=== PATIENT | male | born 1995 | race Caucasian/White ===

== ENCOUNTER 2017-04-05 21:08 | Inpatient (IN) | payer MEDICAID, OTHER ==
[~2017-04-05] VITALS: Ht 170.2 cm; Wt 57.3 kg
[2017-04-05] MEDS ORDERED: LACTATED RINGER'S 1,000 ML IV STA (21:20)
[2017-04-05] MEDS ORDERED: SOD CHLORIDE 0.9% 2,000 ML IV STA (21:20)
[2017-04-05] MEDS ORDERED: morphine 4 MG/ML VIAL IV STA (21:35)
[2017-04-05] MEDS ORDERED: ONDANSETRON 4 MG INJ IV STA (21:35)
[2017-04-05 22:10] LABS: CALCIUM 10.1 mg/dl (8.4-10.2); CREATININE 1.02 mg/dl (0.61-1.24); POTASSIUM 4.4 mmol/L (3.5-5.1)
[2017-04-05 22:11] LABS: BASOPHILS % 0.2 % (0.0-2.0); EOSINOPHILS % 0.4 % (0.0-7.0); HEMATOCRIT 51.6 % (42.0-52.0); HEMOGLOBIN 18.2 g/dl (14.0-18.0); LYMPHOCYTES # 1.8 10^3/ul (0.8-2.9); LYMPHOCYTES % 32.2 % (15.0-51.0); MEAN CORPUSCULAR HEMOGLOBIN 29.2 pg (29.0-33.0); MEAN CORPUSCULAR HGB CONC 35.3 g/dl (32.0-37.0); MEAN CORPUSCULAR VOLUME 82.8 fl (82.0-101.0); MEAN PLATELET VOLUME 8.6 fl (7.4-10.4); MONOCYTE # 0.3 10^3/ul (0.3-0.9); MONOCYTES % 5.2 % (0.0-11.0); NEUTROPHIL # 3.5 10^3/ul (1.6-7.5); NEUTROPHILS % 61.6 % (39.0-77.0); PLATELET COUNT 463 10^3/UL (140-415); RED BLOOD COUNT 6.23 10^6/ul (4.70-6.10); RED CELL DISTRIBUTION WIDTH 13.1 % (11.5-14.5); WHITE BLOOD COUNT 5.6 10^3/ul (4.8-10.8)
[2017-04-05 22:20] LABS: ACETAMINOPHEN < 10.0 ug/ml (10.0-30.0); ETHANOL < 10.0 mg/dl; SALICYLATE < 1.0 mg/dl (5.0-30.0)
[2017-04-05] MEDS ORDERED: INSULIN HUMAN REGULAR 100 UNIT in SOD CHLORIDE 0.9% 99 ML IV SCH ×2 (22:23→23:00)
[2017-04-05] MEDS ORDERED: MULT1TAB59 PO (22:28)
[2017-04-05] MEDS ORDERED: MULTI PO (22:28)
[2017-04-05] MEDS ORDERED: LANT3I SC (22:28)
[2017-04-05] MEDS ORDERED: INSU100I12 SQ (22:28)
--- NOTE | 2017-04-05 22:42 | RADRPT ---
PROCEDURE: CT Brain without. CLINICAL INDICATION: Medical clearance. TECHNIQUE: A CT of the brain was performed on multidetector high-resolution CT scanner utilizing a xial sections from the skull base through the vertex without contrast. The scan was reviewed in sof t tissue brain and high frequency resolution bone algorithm windows. Images were reviewed on a high -resolution PACS workstation. One or more the following does reduction techniques were utilized: Aut omated exposure control, adjustment of the mA/ or kV according to patient's size, or use of iterativ e reconstruction technique. The exam CTDI = 45.01 mGy and the DLP = 720.23 mGy-cm. COMPARISON: None available. FINDINGS: The ventricles and sulci are age-appropriate. There is no intracranial hemorrhage, mass effect or mi dline shift. There is prominent retrocerebellar CSF space measuring up to 1.9 cm in AP diameter whic h may represent bethel cisterna magna versus arachnoid cyst. Otherwise no abnormal intra-axial or extr a-axial fluid collections are seen. The lee/white matter differentiation is preserved. No acute sku ll abnormality is noted. The visualized paranasal sinuses are essentially clear. IMPRESSION: 1. No acute intracranial hemorrhage, transcortical infarction or mass effect. 2. Prominent retrocerebellar CSF space which may represent bethel cisterna magna versus arachnoid cys t. RPTAT: HFN .Reba Otto MD, MD Date Time Electronically viewed and signed by .Reba Otto MD, MD on 04/05/2017 22:42 .N/
[2017-04-05 22:53] LABS: ADD UMIC YES; UR ASCORBIC ACID NEGATIVE (NEGATIVE); UR BACTERIA FEW /HPF (NONE SEEN); UR BILIRUBIN (Dip) NEGATIVE (NEGATIVE); UR BLOOD (Dip) 1+ mg/dL (NEGATIVE); UR CLARITY CLEAR (CLEAR); UR COLOR YELLOW (YELLOW); UR GLUCOSE (Dip) 1+ mg/dL (NEGATIVE); UR KETONES (Dip) 2+ mg/dL (NEGATIVE); UR LEUKOCYTE ESTERASE (Dip) NEGATIVE Leu/ul (NEGATIVE); UR MUCUS FEW /HPF (NONE SEEN); UR NITRITE (Dip) NEGATIVE (NEGATIVE); UR RBC 2 /HPF (0-5); UR SPECIFIC GRAVITY (Dip) 1.013 (1.003-1.030); UR TOTAL PROTEIN (Dip) 2+ mg/dl (NEGATIVE); UR UROBILINOGEN (Dip) 1+ mg/dL (NEGATIVE)
[2017-04-05] MEDS ORDERED: SOD CHLORIDE 0.9% 1,000 ML IV SCH (22:58)
[2017-04-05] MEDS ORDERED: DEXTROSE 5%-0.45% NACL 1,000 ML IV SCH (22:58)
[2017-04-05] MEDS ORDERED: LORAZEPAM 2 MG INJ IV PRN (23:00)
[2017-04-05] MEDS ORDERED: ACETAMINOPHEN 650 MG SUPP PR PRN (23:00)
[2017-04-05] MEDS ORDERED: MAGNESIUM HYDROXIDE 30ML CUP PO PRN (23:00)
[2017-04-05] MEDS ORDERED: ONDANSETRON 4 MG INJ IV PRN (23:00)
[2017-04-05] MEDS ORDERED: ALBUTEROL/IPRATROPIUM (NEB) 3 ML AMP NEB PRN (23:00)
[2017-04-05] MEDS ORDERED: ACCU-CHEK XX SCH (23:00)
[2017-04-05] MEDS ORDERED: DEXTROSE 50% 50 ML SYRINGE IV PRN ×2 (23:00)
[2017-04-05 23:16] LABS: BARBITURATES Negative (NEGATIVE); BENZODIAZEPINES Negative (NEGATIVE); CANNABINOIDS Negative (NEGATIVE); COCAINE Negative (NEGATIVE); OPIATES Positive (NEGATIVE)
[2017-04-05 23:28] LABS: CALCIUM 8.1 mg/dl (8.4-10.2); CREATININE 0.89 mg/dl (0.61-1.24); POTASSIUM 3.8 mmol/L (3.5-5.1)
--- NOTE | 2017-04-05 23:43 | ERD ---
ER Documentation Chief Complaint Chief Complaint DM type1; high BS, nausea and vomiting headache x 3 days HPI Patient is a 22-year-old male with diabetes who presents with blurry vision. Please note the history and physical exam is limited secondary to the patient's mental status at this time. The patient started on Monday with "blurry vision" . He had vomiting and headache as well. He has had decreased intake by mouth. He passed out today which is why the family brought him to the emergency department. He has no weakness of his arms or legs. He has had no treatment as of yet. He initially told me that he took his insulin today but then he also told me that he ran out of insulin 3 days ago. Upon review of old medical records this is the patient's first visit to the emergency department. He goes [facility] for his primary care. ROS All systems reviewed and are negative except as per history of present illness. Medications Home Meds Reported Medications Insulin Lispro (Humalog Kwikpen U-100) 100 Unit/1 Ml Insuln.pen, 0 SQ 8UNITS AT BEAKFAST 10UNITS AT LUNCH 6UNITS AT DINNER 04/05/17 Insulin Glargine* (Lantus*) 100 Unit/Ml Soln, 25 UNIT SC QHS, #1 VIAL 04/05/17 Multivitamins* (Theragran*) 1 Tab Tab, 1 TAB PO DAILY, TAB 04/05/17 Discontinued Reported Medications Multivitamins* (Multivitamins*) 1 Each Tablet, 1 TAB PO DAILY, TAB 04/05/17 Allergies Allergies: Coded Allergies: Unknown: Unable to obtain (Unverified , 04/05/17) PMhx/Soc Positive for diabetes FmHx Family History: diabetes Physical Exam Vitals Vital Signs Date Time Temp Pulse Resp B/P Pulse Ox O2 Delivery O2 Flow Rate FiO2 04/05/17 23:27 111 20 144/92 100 Room Air 04/05/17 22:10 100 14 130/99 100 Room Air 04/05/17 21:13 98.3 147 20 119/75 99 Physical Exam Const: Moderate distress Head: Atraumatic Eyes: Normal Conjunctiva ENT: Normal External Ears, Nose and Mouth. Neck: Full range of motion..~ No meningismus. Resp: Clear to auscultation bilaterally Cardio: Tachycardic rate Abd: Soft, non tender, non distended. Normal bowel sounds Skin: No petechiae or rashes Back: No midline or flank tenderness Ext: No cyanosis, or edema Neur: Awake but confused Result Diagram: 04/05/17212704/05/172252 Results 24 hrs Laboratory Tests Test 04/05/17 21:25 04/05/17 21:28 04/05/17 22:26 04/05/17 22:43 Bedside Glucose 177mg/dL 104mg/dL White Blood Count 5.610^3/ul Red Blood Count 6.2310^6/ul Hemoglobin 18.2g/dl Hematocrit 51.6% Mean Corpuscular Volume 82.8fl Mean Corpuscular Hemoglobin 29.2pg Mean Corpuscular Hemoglobin Concent 35.3g/dl Red Cell Distribution Width 13.1% Platelet Count 92296^3/UL Mean Platelet Volume 8.6fl Neutrophils % 61.6% Lymphocytes % 32.2% Monocytes % 5.2% Eosinophils % 0.4% Basophils % 0.2% Nucleated Red Blood Cells % 0.0/100WBC Neutrophils # 3.510^3/ul Lymphocytes # 1.810^3/ul Monocytes # 0.310^3/ul Eosinophils # 0.010^3/ul Basophils # 0.010^3/ul Nucleated Red Blood Cells # 0.010^3/ul Sodium Level 132mmol/L Potassium Level 4.4mmol/L Chloride Level 94mmol/L Carbon Dioxide Level 15mmol/L Anion Gap 27 Blood Urea Nitrogen 25mg/dl Creatinine 1.02mg/dl Glucose Level 201mg/dl Lactic Acid Level 2.2mmol/L Calcium Level 10.1mg/dl Salicylates Level < 1.0mg/dl Acetaminophen Level < 10.0ug/ml Ethyl Alcohol Level < 10.0mg/dl Urine Color YELLOW Urine Clarity CLEAR Urine pH 6.0 Urine Specific [place] 1.013 Urine Ketones 2+mg/dL Urine Nitrite NEGATIVEmg/dL Urine Bilirubin NEGATIVEmg/dL Urine Urobilinogen 1+mg/dL Urine Leukocyte Esterase NEGATIVELeu/ul Urine Microscopic RBC 2/HPF Urine Microscopic WBC 3/HPF Urine Bacteria FEW/HPF Urine Mucus FEW/HPF Urine Hemoglobin 1+mg/dL Urine Glucose 1+mg/dL Urine Total Protein 2+mg/dl Urine Opiates Screen Positive Urine Barbiturates Negative Urine Amphetamines Screen Negative Urine Benzodiazepines Screen Negative Urine Cocaine Screen Negative Urine Cannabinoids Negative Test 04/05/17 22:53 Sodium Level 135mmol/L Potassium Level 3.8mmol/L Chloride Level 105mmol/L Carbon Dioxide Level 19mmol/L Anion Gap 15 Blood Urea Nitrogen 24mg/dl Creatinine 0.89mg/dl Glucose Level 79mg/dl Calcium Level 8.1mg/dl Phosphorus Level 2.4mg/dl Current Medications Medications (Trade) Dose Ordered Sig/Belle Route PRN Reason Start Time Stop Time Status Last Admin Dose Admin Sodium Chloride 2,000 ml @ 1,000 mls/hr Q2H STAT IV 04/05/17 21:20 04/05/17 23:19 DC 04/05/17 21:35 Lactated Ringer's (Lr) 1,000 ml @ 1,000 mls/hr Q1H STAT IV 04/05/17 21:20 04/05/17 22:19 DC 04/05/17 23:00 Morphine Sulfate (morphine) 4 mg ONCE STAT IV 04/05/17 21:35 04/05/17 21:36 DC 04/05/17 21:44 Ondansetron HCl 4 mg 4 mg ONCE STAT IV 04/05/17 21:35 04/05/17 21:36 DC 04/05/17 21:44 Insulin Human Regular 100 unit/ Sodium Chloride 100 ml @ 6 mls/hr TITRATE IV 04/05/17 22:23 04/05/17 23:39 DC Dextrose/Sodium Chloride (D5-1/2ns) 1,000 ml @ 125 mls/hr Q8H IV 04/05/17 22:58 Ondansetron HCl (Zofran Inj) 4 mg Q6H PRN IV NAUSEA AND/OR VOMITING 04/05/17 23:00 Albuterol/ Ipratropium (Duoneb) 3 ml Q2H RESP THERAPY PRN NEB SHORTNESS OF BREATH 04/05/17 23:00 Acetaminophen (Tylenol Supp) 650 mg Q4H PRN [place] PAIN LEVEL 1-3 OR FEVER 04/05/17 23:00 Morphine Sulfate (morphine) 2 mg Q4H PRN IV PAIN LEVEL 7-10 04/05/17 23:00 Lorazepam (Ativan) 1 mg Q2H PRN IV ANXIETY 04/05/17 23:00 Magnesium Hydroxide (Milk Of Mag) 30 ml DAILY PRN PO CONSTIPATION 04/05/17 23:00 Famotidine (Pepcid Iv) 20 mg Q12 IV 04/06/17 09:00 Dextrose (D50w Syringe) 50 ml Q15M PRN IV For BS 50 or less 04/05/17 23:00 Dextrose 25 ml 25 ml Q15M PRN IV BS between 50-70 04/05/17 23:00 Sodium Chloride 1,000 ml @ 1,000 mls/hr Q1H IV 04/05/17 22:58 04/05/17 23:57 Lactated Ringer's 1,000 ml @ 1,000 mls/hr Q1H IV 04/05/17 23:58 04/06/17 00:57 Potassium Chloride 20 meq/ Sodium Chloride 1,010 ml @ 500 mls/hr Q2H2M IV 04/06/17 00:58 04/06/17 02:57 Insulin Human Regular/Sodium Chloride (Novolin-R/NS) 100 ml @ 6.57 mls/hr DKA PROTOCOL IV 04/05/17 23:00 04/05/17 23:39 DC Diagnostic Test (Pha) (Accu-Chek) 1 ea Q1H XX 04/05/17 23:00 Miscellaneous Information (* Miscellaneous Pharmacy Order) HYPOGLYCEMIA TREATMENT HYPOGLYCEM PROTOCOL PRN XX Hypoglycemia (BS < 70) 04/05/17 23:00 Procedures/MDM CT brain negative for mass or hemorrhage per radiology. Patient is a 22-year-old male presents with tachycardia and altered mental status. My concern initially was for diabetic ketoacidosis as he was not taking his insulin regularly. His initial BMP showed a slightly elevated sugar of 200 and his bicarb was 15 with an elevated anion gap and positive ketones so I will start treating for diabetic ketoacidosis with 2 L of normal saline 1 L of lactated Ringer's. I initially ordered an insulin drip and wanted to admit the patient to the intensive care unit however repeat Accu-Chek was 100 after fluids and I did not want to start the insulin to drop his sugar any further without repeating a BMP. Repeat BMP showed that the anion gap is closed and his bicarbonate improved from 15 to 19 and therefore I do not believe the patient requires ICU level of care at this time. He will be downgraded to a medical surgical bed. He feels better after fluids and I believe he was suffering from dehydration as well. His initial lactic acid was 2.2 but at this point I see no signs of infection and I doubt sepsis. Critical Care: Time: 35 minutes excluding all billable procedures. Treatments/Evaluations: Close monitoring and treatment of unstable vital signs, cardiorespiratory, and neurologic status, while maintaining tight balance of fluid, respiratory, and cardiac interventions. Departure Diagnosis: Primary Impression: Dehydration Additional Impressions: DKA (diabetic ketoacidoses) Diabetes mellitus type: type 1 Diabetes mellitus complication detail: without coma Qualified Code: E10.10 - Diabetic ketoacidosis without coma associated with type 1 diabetes mellitus Hyperglycemia Condition: ELLIOTT Kyle MD Apr 05, 2017 23:43
[2017-04-05] MEDS ORDERED: LACTATED RINGER'S 1,000 ML IV SCH (23:58)
[2017-04-06 00:17] VITALS: TEMP 98.9
[2017-04-06] MEDS ORDERED: POTASSIUM CHLORIDE 20 MEQ in SOD CHLORIDE 0.9% 1,000 ML IV SCH (00:58)
[2017-04-06] MEDS ORDERED: ACCU-CHEK XX SCH (01:00)
[2017-04-06 01:09] VITALS: PULSE 100
[2017-04-06 01:40] VITALS: BP 128/81; RESP 20
[2017-04-06] MEDS ORDERED: GLUCOSE GEL 15 GRAM TUBE BUCCAL PRN (02:15)
[2017-04-06] MEDS ORDERED: GLUCOSE GEL 15 GRAM TUBE PO PRN ×2 (02:15)
[2017-04-06] MEDS ORDERED: GLUCAGON 1 MG INJ IM PRN (02:15)
[2017-04-06] MEDS ORDERED: DEXTROSE 50% 50 ML SYRINGE IV PRN ×2 (02:15)
[2017-04-06] MEDS: SOD CHLORIDE 0.9% 1,000 ML IV SCH ×3 (02:48→22:44)
[2017-04-06 03:06] VITALS: Ht 170.2 cm; Wt 57.3 kg
--- NOTE | 2017-04-06 06:08 | HP ---
Date/Time of Note Date/Time of Note DATE: 04/06/17 TIME: 06:00 Assessment/Plan VTE Prophylaxis VTE Prophylaxis Intervention: SCD's Lines/Catheters IV Catheter Type (from Nrs): Peripheral IV Assessment/Plan Assessment/Plan ASSESSMENT 22-year-old male with a history of insulin-dependent diabetes presenting with early developing DKA after he ran out of his insulin 1 day PLAN Patient received IV fluid boluses in the ER and was out insulin, gap was closed , acidosis improved and he actually became hypoglycemic with a blood glucose of 69. Plan is to treat with subcutaneous insulin. Will check A1c. Continue IV fluids. HPI/ROS Admit Date/Time Admit Date/Time Apr 05, 2017 at 22:42 Hx of Present Illness This is a 22-year-old male with a history of insulin-dependent diabetes who presented to ER complaining of headache, generalized weakness, nausea and elevated blood sugar. He said that he ran out of his insulin yesterday. Denied chest pain, shortness of breath, fever/chills. When he presented to the ER he was tachycardic with a heart rate of almost 150. Initial POC glucose was around 180 with BMP showing around 200. He had bicarb of 15, anion gap 27 with a urinalysis showing 2+ ketones. He received IV fluid boluses with repeat BMP showing an anion gap of 15, bicarb 19 and blood glucose of 69. Initial plan to admit to ICU was canceled and now admitted to MedSurg units and is on subcutaneous insulin. PMH/Family/Social Social History Smoking Status: Never smoker Exam/Review of Systems Vital Signs Vitals Vital Signs Date Time Temp Pulse Resp B/P Pulse Ox O2 Delivery O2 Flow Rate FiO2 04/06/17 01:40 98.4 93 20 128/81 100 04/06/17 01:09 Room Air Intake and Output 04/05/17 04/05/17 04/06/17 15:00 23:00 07:00 Intake Total 2000 ml 1000 ml Balance 2000 ml 1000 ml Exam Constitutional: alert, oriented, well developed Head: atraumatic, normocephalic Eyes: EOMI, PERRL Respiratory: clear to auscultation, normal air movement Cardiovascular: nl pulses, regular rate and rhythm Gastrointestinal: non-tender, soft Extremities: normal pulses Labs Result Diagram: 04/05/17212704/05/172252 Medications Medications Current Medications Ondansetron HCl (Zofran Inj) 4 mg Q6H PRN IV NAUSEA AND/OR VOMITING; Start 04/05/17 at 23:00 Acetaminophen (Tylenol Supp) 650 mg Q4H PRN [place] PAIN LEVEL 1-3 OR FEVER; Start 04/05/17 at 23:00 Morphine Sulfate (morphine) 2 mg Q4H PRN IV PAIN LEVEL 7-10; Start 04/05/17 at 23:00 Lorazepam (Ativan) 1 mg Q2H PRN IV ANXIETY; Start 04/05/17 at 23:00 Magnesium Hydroxide (Milk Of Mag) 30 ml DAILY PRN PO CONSTIPATION; Start at 23:00 Famotidine 20 mg 20 mg Q12 IV ; Start 04/06/17 at 09:00 Sodium Chloride (NS) 1,000 ml @ 100 mls/hr Q10H IV Last administered on t 02:48; Admin Dose 100 MLS/HR; Start 04/06/17 at 02:30 Diagnostic Test (Pha) (Accu-Chek) 1 ea Q6 XX ; Start 04/06/17 at 06:00 Miscellaneous Information 1 ea NOTE XX ; Start 04/06/17 at 02:15 Glucose (Glutose) 15 gm Q15M PRN PO DECREASED GLUCOSE; Start 04/06/17 at 02:15 Glucose (Glutose) 22.5 gm Q15M PRN PO DECREASED GLUCOSE; Start 04/06/17 at 02: 15 Dextrose (D50w Syringe) 25 ml Q15M PRN IV DECREASED GLUCOSE; Start 04/06/17 at 02:15 Dextrose (D50w Syringe) 50 ml Q15M PRN IV DECREASED GLUCOSE; Start 04/06/17 at 02:15 Glucagon (Glucagen) 1 mg Q15M PRN IM DECREASED GLUCOSE; Start 04/06/17 at 02:15 Glucose (Glutose) 15 gm Q15M PRN BUCCAL DECREASED GLUCOSE; Start 04/06/17 at 02 :15 Influenza Virus Vaccine (Fluzone) 0.5 ml ONCE ONCE IM* ; Start 04/07/17 at 09: 00; Stop 04/07/17 at 09:01 MIRA MEDINA MD Apr 06, 2017 06:08
[2017-04-06] MEDS: ACCU-CHEK XX SCH ×4 (06:36→23:59)
[2017-04-06 08:30] VITALS: BP 111/57; RESP 20
[2017-04-06] MEDS: FAMOTIDINE 20 MG INJ IV SCH ×2 (08:42→20:35)
[2017-04-06] MEDS: INSULIN ASPART [NOVOLOG] 3 ML PEN SC SCH ×6 (08:57→20:44)
[2017-04-06] MEDS ORDERED: INSULIN GLARGINE [LANtus] 3 ML PEN SC SCH (10:00)
--- NOTE | 2017-04-06 10:00 | PN ---
Date/Time of Note Date/Time of Note DATE: 04/06/17 TIME: 10:00 Assessment/Plan VTE Prophylaxis VTE Prophylaxis Intervention: ambulation Lines/Catheters IV Catheter Type (from Nrsg): Peripheral IV Assessment/Plan Chief Complaint/Hosp Course 22-year-old male with a history of type I diabetes presenting with nausea and vomiting headache x 3 days who also ran out of insulin for 3 days. 1. Type 1 diabetes, presented with DKA. DKA resolved. Patient is currently on subcutaneous insulin injections. -Adjust Lantus to 25 units and add pre-meals 5 units 3 times daily with meals. De-escalate ISS to mild scale. -Obtain A1c, diabetic education and carbohydrate controlled diet. 2. Headache. CT negative for any acute intracranial pathologies. -Continue Tylenol and add Motrin for pain control. 3. Hypokalemia. -Replete and add magnesium level. 4. Dehydration with #1. -Continue IV fluids. Plan: If blood sugar remained stable, discharge planning in a.m. Patient was seen in collaboration with . Problems: Subjective 24 Hr Interval Summary Free Text/Dictation Patient doing well. He is complaining of headache. Exam/Review of Systems Vital Signs Vitals Vital Signs Date Time Temp Pulse Resp B/P Pulse Ox O2 Delivery O2 Flow Rate FiO2 04/06/17 08:30 97.7 99 20 111/57 99 04/06/17 01:09 Room Air Intake and Output 04/05/17 04/05/17 04/06/17 15:00 23:00 07:00 Intake Total 2000 ml 1300 ml Balance 2000 ml 1300 ml Exam General: Thin built young male, not in any acute distress . HEENT: Normocephalic, Atraumatic, No laceration or hematoma; Eyes: PEERL, Conjunctiva clear, Anicteric sclera Neck: Supple without any lymphadenopathy, nontender, no JVD, no carotid bruits, trachea midline, no thyromegaly Cardiac: S1, S2 auscultated, regular rhythm and rate, no mumurs or gallop Pulmonary: Normal respiratory effort. Chest clear to auscultation bilaterally, no adventitious breath sounds GI: Abdomen normal to inspection. Soft, non tender, non- distended, no masses, no rebound tenderness or guarding. Bowel sounds active on all four quadrants Genitourinary: Deferred Extremities: No cyanosis, clubbing, or edema. Pulses [2+] bilaterally. Full ROM on all four extremities. No focal weakness appreciated. Neurologic: Alert to person, place, time, and situation. Affect appropriate, intact sensation. Skin: Clean,dry, and intact. No ecchymosis, no rashes, or lesions Results Result Diagram: 04/05/17212704/05/173 Results 24 hrs Laboratory Tests Test 04/05/17 21:25 04/05/17 21:28 04/05/17 22:26 04/05/17 22:43 Bedside Glucose 177 104 White Blood Count 5.6 Red Blood Count 6.23 H Hemoglobin 18.2 H Hematocrit 51.6 Mean Corpuscular Volume 82.8 Mean Corpuscular Hemoglobin 29.2 Mean Corpuscular Hemoglobin Concent 35.3 Red Cell Distribution Width 13.1 Platelet Count 463 H Mean Platelet Volume 8.6 Neutrophils % 61.6 Lymphocytes % 32.2 Monocytes % 5.2 Eosinophils % 0.4 Basophils % 0.2 Nucleated Red Blood Cells % 0.0 Neutrophils # 3.5 Lymphocytes # 1.8 Monocytes # 0.3 Eosinophils # 0.0 Basophils # 0.0 Nucleated Red Blood Cells # 0.0 Sodium Level 132 L Potassium Level 4.4 Chloride Level 94 L Carbon Dioxide Level 15 L Anion Gap 27 H Blood Urea Nitrogen 25 H Creatinine 1.02 Glucose Level 201 Lactic Acid Level 2.2 *H Calcium Level 10.1 Salicylates Level < 1.0 L Acetaminophen Level < 10.0 L Ethyl Alcohol Level < 10.0 Urine Color YELLOW Urine Clarity CLEAR Urine pH 6.0 Urine Specific [place] 1.013 Urine Ketones 2+ H Urine Nitrite NEGATIVE Urine Bilirubin NEGATIVE Urine Urobilinogen 1+ H Urine Leukocyte Esterase NEGATIVE Urine Microscopic RBC 2 Urine Microscopic WBC 3 Urine Bacteria FEW A Urine Mucus FEW A Urine Hemoglobin 1+ H Urine Glucose 1+ H Urine Total Protein 2+ H Urine Opiates Screen Positive Urine Barbiturates Negative Urine Amphetamines Screen Negative Urine Benzodiazepines Screen Negative Urine Cocaine Screen Negative Urine Cannabinoids Negative Test 04/05/17 22:53 04/05/17 23:20 04/05/17 23:39 04/06/17 00:03 Sodium Level 135 Potassium Level 3.8 Chloride Level 105 # Carbon Dioxide Level 19 L Anion Gap 15 # Blood Urea Nitrogen 24 H Creatinine 0.89 Glucose Level 79 # Calcium Level 8.1 L Phosphorus Level 2.4 L Lactic Acid Level 1.3 Bedside Glucose 69 L 89 Test 04/06/17 01:03 04/06/17 01:32 04/06/17 04:52 04/06/17 05:51 Bedside Glucose 146 117 Lactic Acid Level 1.0 White Blood Count Pending Red Blood Count Pending Hemoglobin Pending Hematocrit Pending Mean Corpuscular Volume Pending Mean Corpuscular Hemoglobin Pending Mean Corpuscular Hemoglobin Concent Pending Red Cell Distribution Width Pending Platelet Count Pending Mean Platelet Volume Pending Phosphorus Level 3.3 Test 04/06/17 08:42 Bedside Glucose 249 H Medications Medications Current Medications Ondansetron HCl (Zofran Inj) 4 mg Q6H PRN IV NAUSEA AND/OR VOMITING; Start 04/05/17 at 23:00 Acetaminophen (Tylenol Supp) 650 mg Q4H PRN [place] PAIN LEVEL 1-3 OR FEVER; Start 04/05/17 at 23:00 Morphine Sulfate (morphine) 2 mg Q4H PRN IV PAIN LEVEL 7-10; Start 04/05/17 at 23:00 Lorazepam (Ativan) 1 mg Q2H PRN IV ANXIETY; Start 04/05/17 at 23:00 Magnesium Hydroxide (Milk Of Mag) 30 ml DAILY PRN PO CONSTIPATION; Start at 23:00 Famotidine 20 mg 20 mg Q12 IV Last administered on 04/06/17 08:42; Admin Dose 20 MG; Start 04/06/17 at 09:00 Sodium Chloride (NS) 1,000 ml @ 100 mls/hr Q10H IV Last administered on 02:48; Admin Dose 100 MLS/HR; Start 04/06/17 at 02:30 Diagnostic Test (Pha) (Accu-Chek) 1 ea Q6 XX Last administered on 04/06/17 06: 36; Admin Dose 1 EA; Start 04/06/17 at 06:00 Miscellaneous Information 1 ea NOTE XX ; Start 04/06/17 at 02:15 Glucose (Glutose) 15 gm Q15M PRN PO DECREASED GLUCOSE; Start 04/06/17 at 02:15 Glucose (Glutose) 22.5 gm Q15M PRN PO DECREASED GLUCOSE; Start 04/06/17 at 02: 15 Dextrose (D50w Syringe) 25 ml Q15M PRN IV DECREASED GLUCOSE; Start 04/06/17 at 02:15 Dextrose (D50w Syringe) 50 ml Q15M PRN IV DECREASED GLUCOSE; Start 04/06/17 at 02:15 Glucagon (Glucagen) 1 mg Q15M PRN IM DECREASED GLUCOSE; Start 04/06/17 at 02:15 Glucose (Glutose) 15 gm Q15M PRN BUCCAL DECREASED GLUCOSE; Start 04/06/17 at 02 :15 Influenza Virus Vaccine (Fluzone) 0.5 ml ONCE ONCE IM* ; Start 04/07/17 at 09: 00; Stop 04/07/17 at 09:01 Insulin Glargine (Lantus) 15 unit DAILY SC ; Start 04/06/17 at 10:00 RATNA JOSEPH V. COMPLAINT SPECIALIST Apr 06, 2017 10:00
[2017-04-06 10:01] LABS: WHITE BLOOD COUNT 4.8 10^3/ul (4.8-10.8)
[2017-04-06 10:02] LABS: BASOPHILS % 0.4 % (0.0-2.0); EOSINOPHILS # 0.1 10^3/ul (0.0-0.5); HEMATOCRIT 35.6 % (42.0-52.0); HEMOGLOBIN 12.6 g/dl (14.0-18.0); LYMPHOCYTES # 1.9 10^3/ul (0.8-2.9); LYMPHOCYTES % 40.5 % (15.0-51.0); MEAN CORPUSCULAR HEMOGLOBIN 29.9 pg (29.0-33.0); MEAN CORPUSCULAR HGB CONC 35.4 g/dl (32.0-37.0); MEAN CORPUSCULAR VOLUME 84.6 fl (82.0-101.0); MEAN PLATELET VOLUME 8.7 fl (7.4-10.4); MONOCYTE # 0.6 10^3/ul (0.3-0.9); MONOCYTES % 11.5 % (0.0-11.0); NEUTROPHIL # 2.2 10^3/ul (1.6-7.5); NEUTROPHILS % 46.2 % (39.0-77.0); PLATELET COUNT 307 10^3/UL (140-415); RED BLOOD COUNT 4.21 10^6/ul (4.70-6.10); RED CELL DISTRIBUTION WIDTH 12.7 % (11.5-14.5)
[2017-04-06 10:09] LABS: ALBUMIN/GLOBULIN RATIO 1.2; BILIRUBIN,INDIRECT 0.6 mg/dl (0-1.1); BILIRUBIN,TOTAL 0.6 mg/dl (0.2-1.3); CALCIUM 7.8 mg/dl (8.4-10.2); CREATININE 0.79 mg/dl (0.61-1.24); POTASSIUM 3.4 mmol/L (3.5-5.1); TOTAL PROTEIN 5.5 g/dl (6.1-8.1)
[2017-04-06] MEDS ORDERED: POTASSIUM CHLORIDE (SR) 20 MEQ TAB PO STA (13:36)
[2017-04-06] MEDS: IBUPROFEN 400 MG TAB PO SCH ×3 (14:00→22:39)
[2017-04-06 16:00] VITALS: BP 123/72; RESP 20
[2017-04-06 20:57] VITALS: BP 125/71; RESP 19
[2017-04-07] MEDS ORDERED: SOD CHLORIDE 0.9% 500 ML IV ONE (01:00)
[2017-04-07] MEDS ORDERED: INSULIN ASPART [NOVOLOG] 3 ML PEN SC ONE (01:00)
[2017-04-07] MEDS ORDERED: ACCU-CHEK XX SCH ×2 (02:00)
[2017-04-07 02:25] VITALS: BP 118/64; RESP 19
[2017-04-07 05:34] LABS: CALCIUM 7.9 mg/dl (8.4-10.2); CREATININE 0.71 mg/dl (0.61-1.24); MAGNESIUM 1.7 mg/dl (1.7-2.5)
[2017-04-07] MEDS: IBUPROFEN 400 MG TAB PO SCH ×2 (06:00→12:00)
[2017-04-07] MEDS: ACCU-CHEK XX SCH (06:48)
[2017-04-07] MEDS ORDERED: INSULIN ASPART [NOVOLOG] 3 ML PEN SC SCH ×2 (07:50→11:40)
[2017-04-07 07:53] VITALS: BP 105/67; RESP 19
[2017-04-07] MEDS ORDERED: INSULIN GLARGINE [LANtus] 3 ML PEN SC SCH ×2 (08:00→09:00)
[2017-04-07] MEDS: SOD CHLORIDE 0.9% 1,000 ML IV SCH (08:30)
[2017-04-07] MEDS ORDERED: INFLUENZA VIRUS VACCINE 0.5 ML (DISPENSING) IM* ONE (09:00)
[2017-04-07] MEDS: FAMOTIDINE 20 MG INJ IV SCH ×2 (09:00→11:36)
[2017-04-07] MEDS: INSULIN ASPART [NOVOLOG] 3 ML PEN SC SCH ×2 (09:19→13:36)
[2017-04-07] MEDS ORDERED: POTASSIUM CHLORIDE (SR) 20 MEQ TAB PO STA (10:09)
--- NOTE | 2017-04-07 10:55 | PDOCDIS ---
Discharge Instructions CONDITION Patient Condition: Stable HOME CARE INSTRUCTIONS: Your diet recommendation is: Carbohydrate controlled diet. FOLLOW UP/APPOINTMENTS Follow-up Plan 1.Follow up with primary care physician in 1 week If you don't have one please let someone know, we can give you resources that may help you pick one. You may also call your insurance company to assign one to you. Review your medication list with your nurse before leaving and if you need new prescriptions please let your nurse know. I may have made changes to your home medications or given you new prescriptions, please let your primary doctor know as well. Stay compliant with your medications and report any side effects to your PCP or pharmacist. Return to the ER if you have any concerns and cannot reach your doctors or call your insurance company, they usually have a nurse that can help you. 2. Call 911 or go to the nearest emergency room if experiencing loss of consciousness, dizziness, chest pain, shortness of breath, vomiting/abdominal pain, speech difficulties, motor weakness or any unusual symptoms. RATNA JOSEPH NP Apr 07, 2017 10:55
--- NOTE | 2017-04-07 11:03 | DS ---
Date/Time of Note Date/Time of Note DATE: 04/07/17 TIME: 11:03 Discharge Summary Admission/Discharge Info Admit Date/Time Apr 05, 2017 at 22:42 Discharge Date/Time Discharge Diagnosis 1. Type 1 diabetes, presented with DKA. DKA resolved. Patient Condition: Stable Hospital Course This is a 22-year-old male with a past medical history type 1 diabetes, presented to the emergency room with nausea and vomiting with headache 3 day duration after he ran out of insulin for 3 days. Patient was noted with a blood sugar of 200 with anion gap 27 with 2+ ketones in the urine. Patient was treated for DKA in the emergency room. As the plan was to send patient to ICU with DKA protocol, fortunately his gap was closed and patient became asymptomatic and therefore he was admitted to medical surgical unit on subcutaneous insulin. Patient was continued on insulin Lantus, sliding scale with pre-meals. He was continued on a carbohydrate controlled diet. Patient had diabetic education. His A1c was 11.3. Patient elect lites level was monitored closely and repleted as indicated. He was continued on IV fluids. Blood sugar remains stable. There was no further acidosis. During the course of hospitalization, patient complained of headache and therefore a CT brain was done and was negative for any acute intracranial pathology. His headache less likely secondary to dehydration and was treated with Motrin. He was feeling back to his baseline. He was tolerating diet. At this time there is no further inpatient workup needed. Patient was instructed to follow-up with his primary care physician. He was given Cardizem prescription for his home insulin regimen. He was also given instruction on how to properly check blood glucose and administer insulin. Patient verbalized instructions. Disposition: Patient will be discharged home with outpatient follow-up. Approximately 60 minutes was spent in coordinating the discharge on this patient. Patient was seen in collaboration with . Home Meds Reported Medications Insulin Lispro (Humalog Kwikpen U-100) 100 Unit/1 Ml Insuln.pen, 0 SQ 8UNITS AT BEAKFAST 10UNITS AT LUNCH 6UNITS AT DINNER 04/05/17 Insulin Glargine* (Lantus*) 100 Unit/Ml Soln, 25 UNIT SC QHS, #1 VIAL 04/05/17 Multivitamins* (Theragran*) 1 Tab Tab, 1 TAB PO DAILY, TAB 04/05/17 Discontinued Reported Medications Multivitamins* (Multivitamins*) 1 Each Tablet, 1 TAB PO DAILY, TAB 04/05/17 Follow-up Plan 1.Follow up with primary care physician in 1 week If you don't have one please let someone know, we can give you resources that may help you pick one. You may also call your insurance company to assign one to you. Review your medication list with your nurse before leaving and if you need new prescriptions please let your nurse know. I may have made changes to your home medications or given you new prescriptions, please let your primary doctor know as well. Stay compliant with your medications and report any side effects to your PCP or pharmacist. Return to the ER if you have any concerns and cannot reach your doctors or call your insurance company, they usually have a nurse that can help you. 2. Call 911 or go to the nearest emergency room if experiencing loss of consciousness, dizziness, chest pain, shortness of breath, vomiting/abdominal pain, speech difficulties, motor weakness or any unusual symptoms. Primary Care Provider Care Physician No Primary Pending Labs Laboratory Tests Test 04/06/17 12:32 04/06/17 14:21 04/06/17 17:17 04/06/17 20:30 Bedside Glucose 321mg/dL (70-220) 333mg/dL (70-220) 190mg/dL (70-220) 315mg/dL (70-220) Test 04/06/17 20:33 04/06/17 23:57 04/07/17 02:53 04/07/17 04:20 Bedside Glucose 267mg/dL (70-220) 324mg/dL (70-220) 224mg/dL (70-220) Sodium Level 138mmol/L (135-144) Potassium Level 3.0mmol/L (3.5-5.1) Chloride Level 106mmol/L (97-110) Carbon Dioxide Level 26mmol/L (21-31) Anion Gap 9 (8-16) Blood Urea Nitrogen 14mg/dl (7-20) Creatinine 0.71mg/dl (0.61-1.24) Glucose Level 181mg/dl (70-220) Calcium Level 7.9mg/dl (8.4-10.2) Magnesium Level 1.7mg/dl (1.7-2.5) Test 04/07/17 06:14 04/07/17 09:09 Bedside Glucose 215mg/dL (70-220) 200mg/dL (70-220) RATNA JOSEPH NP Apr 07, 2017 11:03 RATNA JOSEPH NP Apr 07, 2017 11:03
[2017-04-07] MEDS: morphine 2 MG INJ IV PRN ×2 (11:37→17:20)
[2017-04-08] MEDS ORDERED: ACCU-CHEK XX SCH (02:00)
== END 2017-04-07 17:45 | disposition home or self-care (01) | DRG 639 ==
LOC: E/R 21:08 → MS1 22:42
PROVIDERS: ADMIT Internal Medicine; ATTEND Internal Medicine
DX: E10.10 Type 1 diabetes mellitus with ketoacidosis without coma (principal); E86.0 Dehydration; Z79.4 Long term (current) use of insulin; R51 Headache
CPT/HCPCS: 36415; 70450; 80048; 80053; 80306; 80307; 81001; 82962; 83036; 83605; 83735; 84100; 85025; 90686; 96361; 96374; 96375; J1815; J2270; J2405; J3480; J7030; J7040; J7042; J7120

== ENCOUNTER 2017-06-18 17:09 | Inpatient (IN) | END 2017-06-21 13:45 | disposition home or self-care (01) | DRG 637 ==

== ENCOUNTER 2017-06-26 20:28 | Emergency (ER) | END 2017-06-26 21:04 | disposition left against medical advice (07) ==

== ENCOUNTER 2017-11-16 03:21 | Inpatient (IN) | END 2017-11-18 19:20 | disposition home or self-care (01) | DRG 871 ==

== ENCOUNTER 2018-01-01 19:34 | Emergency (ER) | END 2018-01-01 20:53 | disposition home or self-care (01) ==

== ENCOUNTER 2018-01-22 05:40 | Inpatient (IN) | END 2018-01-24 14:40 | disposition home or self-care (01) | DRG 637 ==